=== PATIENT | male | born 1980 | race Two or more races ===

== ENCOUNTER → 2024-06-05 | Outpatient (CLI) | payer MEDICAID, SELFPAY ==
--- NOTE | 2024-06-05 13:10 | XR_ITS ---
Strength in Examination: CTA abdomen, with intravenous contrast. CTA pelvis, with intravenous contrast. 2-D sagittal and coronal reconstructions. 3-D reconstructions. Date and time of exam: June 05, 2024 1409 hours INDICATIONS: Abdominal pain severe 7 months, clinical diagnosis mesenteric ischemia CTDI vol (mgy) 15.9 DLP (MGycm) 500 Technique: Multiple CTA images, 2.0 mm slice thickness, obtained abdomen, pelvis, with the high-resolution 64 slice scanner. 100 cc Isovue-370 is administered intravenously. Sagittal and coronal 2-D reconstructions are obtained. 3-D reconstructions, angiographic images are obtained. 3-D postprocessing, including vascular maximum intensity projections. Low dose protocols were performed. One or more of the following dose reduction techniques were used; automated exposure control, adjustment of the mA and/or KV according to patient size, use of iterative reconstruction technique. Findings: No focal liver or splenic lesions No gallstones No pancreatic mass No renal or ureteral calculi, no hydronephrosis Aorta normal size 12 mm fat-containing umbilical hernia Normal appendix No ischemic small bowel or colon noted Urinary bladder intact No prostatomegaly L4-L5 3 mm central lumbar disc bulge L3-L4 5 mm central lumbar disc bulge IMPRESSION: No renal or ureteral calculi Normal appendix No ischemic small bowel: Noted Lumbar disc bulges as above
== END | disposition home or self-care (01) ==
LOC: CDIM 12:47
PROVIDERS: PCP Family Medicine; Referring Provider Nurse Practitioner Family; Visit Provider Nurse Practitioner Family
DX: R10.84 Generalized abdominal pain (principal); M51.369 Other intervertebral disc degeneration, lumbar region without mention of lumbar back pain or lower extremity pain
CPT/HCPCS: 74174; A4649; Q9967

== ENCOUNTER 2024-07-09 10:01 | Emergency (ER) | payer MEDICAID, SELFPAY ==
--- NOTE | 2024-07-09 10:25 | XR_ITS ---
Examination: CT brain head without contrast. 2-D sagittal coronal reconstructions Date and time of exam:July 09, 2024 1110 hours Comparison July 19, 2022 INDICATIONS: Seizure today, patient found down unconscious CTDI: vol (mGy):51.7 DLP: (mGycm):947 Technique: Multiple CT axial sections of the brain have been obtained, 5 mm slice thickness. Contrast has not been administered. 2-D sagittal, coronal reconstructions have been obtained Low dose protocols were performed. One or more of the following dose reduction techniques were used; automated exposure control, adjustment of the mA and/or KV according to patient size, use of iterative reconstruction technique. Findings: No significant ventricular enlargement. Stable 7 mm left temporal lobe calcification Intra-axial or extra-axial hemorrhage density is not seen. No mass effect or midline shift Basal cisterns are not remarkable. Fourth ventricle is midline. Cranial vault intact. Impression: Negative for acute hemorrhage, mass effect or midline shift Consider repeat elective brain MRI follow-up, pre and postcontrast, seizure protocol
--- NOTE | 2024-07-09 10:26 | PD.EDADULT ---
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 He was altered at time very therefore EMS was requested and transported to the emergency department without event. He remains slightly postictal with complaints of dizziness and nausea. He recalls taking his Keppra last night, however does not remember if he took it this morning. He does not recall if he took any alcohol recently. Related Data Home Medications ?Medication ?Instructions ?Recorded ?Confirmed levetiracetam 500 mg tablet 500 mg PO BID 10/16/21 04/08/22 hydrocodone 10 mg-acetaminophen 1 tab PO Q6H PRN Pain 04/08/22 04/08/22 325 mg tablet Previous Rx's ?Medication ?Instructions ?Recorded hydrocodone 5 mg-acetaminophen 325 1 tab PO Q8H PRN pain #6 tabs 04/14/22 mg tablet pantoprazole 40 mg tablet,delayed 40 mg PO BID #60 tabs 04/14/22 release famotidine 40 mg tablet 40 mg PO QDAY #30 tabs 10/08/22 ondansetron 4 mg disintegrating 4 mg PO Q8H PRN nausea and 05/27/23 tablet vomiting #10 tabs dicyclomine 20 mg tablet 20 mg PO QID PRN abdominal pain 06/11/23 #30 tabs pantoprazole 40 mg tablet,delayed 40 mg PO QDAY #14 tabs 06/11/23 release (Protonix) amoxicillin 875 mg tablet 875 mg PO BID #28 tabs 11/13/23 clarithromycin 500 mg tablet 500 mg PO BID #28 tabs 11/13/23 famotidine 40 mg tablet (Pepcid) 40 mg PO QDAY #30 tabs 04/18/24 Allergies Allergy/AdvReac Type Severity Reaction Status Date / Time No Known Allergies Allergy Verified 06/11/23 14:48 ED Exam Narrative Physical exam: GENERAL APPEARANCE: AxOx4, generally well-appearing, no acute distress. HEENT: NC, AT. MMM. EOMI, clear conjunctiva, oropharynx clear. NECK: Supple without lymphadenopathy. No stiffness or restricted ROM. HEART: Normal rate and regular rhythm, normal S1/S1, no m/r/g LUNGS: CTAB, moving air well. No crackles or wheezes are heard. ABDOMEN: Soft, nontender, nondistended with good bowel sounds heard. BACK: No midline C/T/L spine pain or deformity, No CVAT, no obvious deformity. EXTREMITIES: Without cyanosis, clubbing or edema. MUSCULOSKELETAL: FROM of all major joints, no chest tenderness NEUROLOGICAL: Grossly nonfocal. Alert and oriented, moving all 4 extremities. CN not formally tested but appear grossly intact. Observed to ambulate with normal gait. Skin: Warm and dry without any rash. Course Quality Measures none Orders Category Date Time Status CT head/brain wo con Stat Exams 07/09/24 10:25 Completed Alcohol, Blood Medical Stat Lab 07/09/24 10:35 Completed CBC Stat Lab 07/09/24 10:35 Completed CMP [Comprehensive Metabolic Panel] Stat Lab 07/09/24 10:35 Completed Ondansetron Inj [Zofran Inj] Med 07/09/24 10:25 Discontinued 4 mg IV X1 ONE Sodium Chloride 0.9% 1000 ml [Ns] 1,000 ml Med 07/09/24 10:25 Discontinued IV 999 mls/hr levETIRAcetam INJ [Keppra Inj] Med 07/09/24 10:26 Discontinued 1,000 mg IVP X1 ONE Vital Signs Vital signs: Vital Signs Temperature 98.2 F 07/09/24 10:53 Pulse Rate 103 H 07/09/24 10:53 Respiratory Rate 18 07/09/24 10:53 Blood Pressure 130/90 H 07/09/24 10:53 Pulse Oximetry (%) 93 L 07/09/24 10:53 Oxygen Delivery Method Room Air 07/09/24 10:53 SpO2 93% on room air, patient is not MDM Patient data External records reviewed:: [facility] previous records Clinical information provided by:: patient Social determinants that could affect healthcare access:: none Patient has the following chronic illnesses:: Epilepsy How is presenting disease/condition affected by chronic disease/condition?: caused by Evaluation data The following diagnostics were reviewed and interpreted by me:: lab results and radiology exam(s) Lab and/or radiology exams considered but not ordered:: None Interpretation Summary: As per narrative Medications Medications considered but not ordered:: None Medication administrations:: Medication Administration History Discontinued Medications Sodium Chloride (Ns) 1,000 mls @ 999 mls/hr IV .Q1H1M ONE Stop: 07/09/24 11:25 Last Admin: 07/09/24 10:54 Dose: 999 mls/hr Documented By: TM Levetiracetam (Levetiracetam Inj 100 Mg/Ml Vial 5ml) 1,000 mg IVP X1 ONE Stop: 07/09/24 10:27 Last Admin: 07/09/24 10:53 Dose: 1,000 mg Documented By: TM Ondansetron HCl (Ondansetron Inj 2 Mg/Ml Inj 2 Ml) 4 mg IV X1 ONE; Protocol Stop: 07/09/24 10:26 Last Admin: 07/09/24 10:53 Dose: 4 mg Documented By: TM Above Consultations Consultation(s) initiated? (list below): No Diagnosis Differential Diagnosis ED Complaint MDM: Breakthrough seizure, closed head injury, intracerebral hemorrhage Most likely diagnosis given after review of the tests above:: See below Admission Indicated Admission indicated?: not indicated Explain why admission is indicated or not indicated:: As per narrative Admission Request Was there a request for admission?: No Disposition Plan Disposition Plan: Discharge Discharge Attestation Discharge Attestation: The patient and all family members were given an opportunity to ask questions and understood the discharge instructions. Discharge instructions specifically effects, indications for sooner follow up or return to the emergency department, and the expected course of current diagnosis. Patient condition: Stable Medical Decision Making MDM Narrative MDM Narrative: Mr. Win presents emergency department with breakthrough seizure in the setting of possibly missing his dose of Keppra this morning. He is on the tail end of his postictal phase return to baseline. He remained neurologically intact throughout his emergency department stay. Events were unclear and he was found down in the [place] (workplace) therefore CT of the head was done which shows no acute intracerebral findings. Laboratory testing was significant for a normal sodium. As seizures is a chronic issue with the patient, he has no signs of prolonged postictal or status epilepticus, is neurologically intact, he is appropriate for outpatient follow-up Differential Diagnosis Differential Diagnosis: Breakthrough seizure, closed head injury, intracerebral hemorrhage Lab Data 07/09/24 10:35 07/09/24 10:35 Labs: Lab Results 07/09/24 Range/Units 10:35 WBC 6.6 (3.8-10.6) Thou/mm3 RBC 4.76 (4.50-5.90) Miln/mm3 Hgb 12.6 L (13.5-16.0) g/dL Hct 38.1 L (41.0-53.0) % MCV 80 (80-100) fL MCH 26.5 (25.0-35.0) pg MCHC 33.1 (31.0-37.0) g/dl RDW Std Deviation 38.4 (35.1-43.9) fL Plt Count 228 (140-440) Thou/mm3 Neut % (Auto) 59 (37-80) % Lymph % (Auto) 28 (10-50) % [place] % (Auto) 9 (0-12) % Eos % (Auto) 3 (0-10) % Baso % (Auto) 0 (0-2.5) % Neut # (Auto) 3.9 (1.8-7.7) Thou/mm3 Lymph # (Auto) 1.8 (1.0-4.8) Thou/mm3 [place] # (Auto) 0.6 (0.0-0.8) Thou/mm3 Eos # (Auto) 0.2 (0.0-0.5) Thou/mm3 Baso # (Auto) 0.0 (0.0-0.2) Thou/mm3 Immature Gran # (Auto) 0.02 H (0.00-0.00) Thou/mm3 Absolute Nucleated RBC 0.00 (0.00-0.00) Thou/mm3 Immature Gran % 0 (0-0) % Nucleated RBC % 0 (0) /100 WBC Sodium 137 (136-145) mMol/L Potassium 3.9 (3.4-5.1) mMol/L Chloride 100 (98-107) mMol/L Carbon Dioxide 27.5 (20.0-31.0) mMol/L Anion Gap 10 (7-16) BUN 17 (9-23) mg/dL Creatinine 1.3 (0.6-1.3) mg/dL Estim Creat Clear Calc 65.2 (>60) mL/min eGFR > 60 (60 - ) See Note BUN/Creatinine Ratio 13 (12-20) Ratio Glucose 99 (74-106) mg/dL Calculated Osmolality 275 (275-295) Calcium 9.8 (8.3-10.6) mg/dL Corrected Calcium 9.8 (8.5-10.1) mg/dL Total Bilirubin 1.4 H (0.3-1.2) mg/dL AST 20 (0-34) U/L ALT 17 (10-49) U/L Alkaline Phosphatase 82 (46-116) U/L Total Protein 7.6 (5.7-8.2) gm/dL Albumin 5.2 H (3.5-5.0) gm/dL Globulin 2.4 (2.3-3.5) gm/dL Albumin/Globulin Ratio 2.2 (1.2-2.2) Ethyl Alcohol < 10.0 (0-10.0) mg/dL Discharge Plan Plan Patient Disposition: HOME (Self Care) Prescriptions/Referrals Prescriptions/Med Rec: No Action levetiracetam 500 mg tablet 500 mg PO BID Patient Comments: take 1 tablet by mouth three times a day famotidine 40 mg tablet 40 mg PO QDAY Qty: 30 0RF dicyclomine 20 mg tablet 20 mg PO QID PRN (Reason: abdominal pain) Qty: 30 0RF pantoprazole [Protonix] 40 mg tablet,delayed release (DR/EC) 40 mg PO QDAY Qty: 14 0RF famotidine [Pepcid] 40 mg tablet 40 mg PO QDAY Qty: 30 0RF hydrocodone-acetaminophen 10-325 mg Tablet 1 tab PO Q6H PRN (Reason: Pain) pantoprazole 40 mg Tablet,Delayed Release (Dr/Ec) 40 mg PO BID Qty: 60 0RF hydrocodone-acetaminophen 5-325 mg tablet 1 tab PO Q8H MDD 3 tabs PRN (Reason: pain) Qty: 6 0RF ondansetron 4 mg tablet,disintegrating 4 mg PO Q8H PRN (Reason: nausea and vomiting) Qty: 10 0RF clarithromycin 500 mg tablet 500 mg PO BID Qty: 28 0RF amoxicillin 875 mg tablet 875 mg PO BID Qty: 28 0RF Referrals: [facility] [Primary Care Provider] - In 1 week Problem List Clinical Impression: Epileptic seizure Patient/Caregiver Discharge Instructions Education Materials: ED Seizure, Recurrent (Adult) Additional Instructions: Puede continuar tomando nanda medicamentos anticonvulsivos habituales (Keppra) josseline el aliyah del d?a. Tambi?n le muller dado Keppra en el servicio de urgencias. Realice un seguimiento con billings m?dico de atenci?n primaria seg?n sea necesario. Puede regresar al servicio de urgencias antes si los s?ntomas empeoran o si nota alg?n problema nuevo y preocupante. Print Language: Palestinian Stand Alone Forms: [facility]e Award Info., Patient Portal Info Letter
[2024-07-09 10:36] VITALS: PULSE 125; RESP 18; O2SAT 99; BMI 28.7
--- NOTE | 2024-07-09 10:48 | PC.NURSE ---
PT ARRIVES VIA EMS FROM WORK. WAS FOUND DOWN BY CO-WORKERS. ACCORDING TO EMS [employer]WORKERS CALLED WHO REPORTS HE HAS A HX OF EPILEPSY THAT HE IS MED COMPLIANT WITH HIS KEPPRA FOR. WHEN PT ARRIVED TO ED, PT WAS STICKING HIS FINGERS DOWN HIS THROAT MAKING HIMSELF VOMIT. SEIZURE PRECAUTIONS APPLIED, PT CONNECTED TO TELE, ST ON TELE, BP ELEVATED, DENIES ANY PAIN AT THIS TIME, JUST DIZZINESS. CALL AGUILAR IN REACH.
[2024-07-09 10:50] LABS: Basophils % (Auto) 0 % (0-2.5); Eosinophils # (Auto) 0.2 Thou/mm3 (0.0-0.5); Eosinophils % (Auto) 3 % (0-10); Hematocrit 38.1 % (41.0-53.0); Hemoglobin 12.6 g/dL (13.5-16.0); Immature Granulocytes % (Auto) 0 % (0-0); Immature Granulocytes Auto 0.02 Thou/mm3 (0.00-0.00); Lymphocytes # (Auto) 1.8 Thou/mm3 (1.0-4.8); Lymphocytes % (Auto) 28 % (10-50); Mean Corpuscular HGB Conc 33.1 g/dl (31.0-37.0); Mean Corpuscular Hemoglobin 26.5 pg (25.0-35.0); Mean Corpuscular Volume 80 fL (80-100); Monocytes # (Auto) 0.6 Thou/mm3 (0.0-0.8); Monocytes % (Auto) 9 % (0-12); Neutrophils # (Auto) 3.9 Thou/mm3 (1.8-7.7); Neutrophils % (Auto) 59 % (37-80); Nucleated Red Blood Cell % 0 /100 WBC (0); Platelet Count 228 Thou/mm3 (140-440); RDW Standard Deviation 38.4 fL (35.1-43.9); Red Blood Count 4.76 Miln/mm3 (4.50-5.90); White Blood Count 6.6 Thou/mm3 (3.8-10.6)
[2024-07-09 10:53] VITALS: BP 130/90; PULSE 103; RESP 18; TEMP 36.8; O2SAT 93
[2024-07-09] MEDS: ONDANSETRON INJ 2 MG/ML INJ 2 ML 4 MG IV (10:53)
[2024-07-09] MEDS: levETIRAcetam INJ 100 MG/ML VIAL 5ML 1000 MG IVP (10:53)
[2024-07-09] MEDS: SODIUM CHLORIDE 0.9% 1000 ML 1,000 ML 999 ML IV (10:54)
[2024-07-09 11:06] LABS: Alanine Aminotransferase 17 U/L (10-49); Albumin, Serum 5.2 gm/dL (3.5-5.0); Albumin/Globulin Ratio 2.2 (1.2-2.2); Alcohol, Blood Medical < 10.0 mg/dL (0-10.0); Alkaline Phosphatase 82 U/L (46-116); Anion Gap 10 (7-16); Aspartate Amino Transferase 20 U/L (0-34); BUN/Creatinine Ratio 13 Ratio (12-20); Bilirubin,Total 1.4 mg/dL (0.3-1.2); Blood Urea Nitrogen 17 mg/dL (9-23); Calcium 9.8 mg/dL (8.3-10.6); Calcium (Corrected) 9.8 mg/dL (8.5-10.1); Carbon Dioxide 27.5 mMol/L (20.0-31.0); Chloride 100 mMol/L (98-107); Creatinine (Component) 1.3 mg/dL (0.6-1.3); Estimated Creatinine Clearance 65.2 mL/min (>60); Globulin 2.4 gm/dL (2.3-3.5); Glucose 99 mg/dL (74-106); Osmolality,Calculated 275 (275-295); Potassium 3.9 mMol/L (3.4-5.1); Sodium 137 mMol/L (136-145); Total Protein 7.6 gm/dL (5.7-8.2); eGFR > 60 See Note
[2024-07-09 12:41] VITALS: BP 120/78; PULSE 86; RESP 18; O2SAT 96
== END 2024-07-09 12:44 | disposition home or self-care (01) ==
PROVIDERS: Emergency Provider Emergency Medicine; PCP Physician Assistant
DX: G40.909 Epilepsy, unspecified, not intractable, without status epilepticus (principal)
CPT/HCPCS: 36415; 70450; 80053; 80307; 80320; 85025; 96361; 96374; 96375; 99284; J1953; J2405; J7030; G0480

== ENCOUNTER 2024-07-24 16:53 | Emergency (ER) | payer MEDICAID, SELFPAY ==
[2024-07-24 16:54] VITALS: BMI 29.2
[2024-07-24 17:26] VITALS: BP 110/72; PULSE 95; RESP 15; TEMP 36.8; O2SAT 98
--- NOTE | 2024-07-24 17:30 | XR_ITS ---
Examination: CT abdomen and pelvis without contrast. Coronal 3-D reconstructions. Sagittal 2-D reconstructions. Date and time of exam:July 24, 2024 1803 hours Comparison June 05, 2024 INDICATIONS: Abdominal pain epigastric pain nausea vomiting diarrhea beginning 2 days ago CTDI: vol (mGy): 6.43 DLP: (mGycm): 374 Technique: Axial images of the abdomen have been obtained, 3 mm slice thickness Intravenous contrast material has not been administered. Low dose protocols were performed. One or more of the following dose reduction techniques were used; automated exposure control, adjustment of the mA and/or KV according to patient size, use of iterative reconstruction technique. Findings: Small pericardial effusion, 7 mm axial image 38 No focal liver or splenic lesions Contracted gallbladder No pancreatic or adrenal mass No renal or ureteral calculi, no hydronephrosis Aorta normal size 17 mm fat-containing umbilical hernia Normal appendix No bowel obstruction No diverticulitis Normal prostate Contracted urinary bladder The osseous structures are intact IMPRESSION: Negative for pancreatitis No renal or ureteral calculi, no hydronephrosis Normal appendix No bowel obstruction diverticulitis or free air Consider post fasting gallbladder sonography follow-up
--- NOTE | 2024-07-24 17:30 | PD.EDRME ---
Rapid Medical Screening Exam RME Arrival date/time: 07/24/24 16:53 44-year-old male presents to the emergency department complains of generalized abdominal pain Chief Complaint: Abdominal Pain Time Seen by Provider: 07/24/24 16:58 Vital signs: Vital Signs Temperature 98.3 F 07/24/24 17:26 Pulse Rate 95 07/24/24 17:26 Respiratory Rate 15 07/24/24 17:26 Blood Pressure 110/72 07/24/24 17:26 Pulse Oximetry (%) 98 07/24/24 17:26 Oxygen Delivery Method Room Air 07/24/24 17:26
[2024-07-24] MEDS: FAMOTIDINE 20 MG TABLET PO (17:46)
[2024-07-24] MEDS: LIDOCAINE VISCOUS 2% 15 ML UDC PO (17:47)
[2024-07-24] MEDS: MG HYD/AL HYD/SIME (Maalox Reg) SUSP 30 ML UDC PO (17:47)
[2024-07-24 18:17] LABS: Basophils % (Auto) 0 % (0-2.5); Eosinophils # (Auto) 0.1 Thou/mm3 (0.0-0.5); Eosinophils % (Auto) 1 % (0-10); Hemoglobin 13.3 g/dL (13.5-16.0); Immature Granulocytes % (Auto) 0 % (0-0); Immature Granulocytes Auto 0.01 Thou/mm3 (0.00-0.00); Lymphocytes # (Auto) 1.5 Thou/mm3 (1.0-4.8); Lymphocytes % (Auto) 21 % (10-50); Mean Corpuscular HGB Conc 34.1 g/dl (31.0-37.0); Mean Corpuscular Hemoglobin 26.2 pg (25.0-35.0); Mean Corpuscular Volume 77 fL (80-100); Monocytes # (Auto) 0.6 Thou/mm3 (0.0-0.8); Monocytes % (Auto) 9 % (0-12); Neutrophils # (Auto) 4.7 Thou/mm3 (1.8-7.7); Neutrophils % (Auto) 69 % (37-80); Nucleated Red Blood Cell % 0 /100 WBC (0); Platelet Count 304 Thou/mm3 (140-440); RDW Standard Deviation 35.9 fL (35.1-43.9); Red Blood Count 5.07 Miln/mm3 (4.50-5.90); White Blood Count 6.9 Thou/mm3 (3.8-10.6)
[2024-07-24 18:38] LABS: Alanine Aminotransferase 13 U/L (10-49); Albumin, Serum 5.1 gm/dL (3.5-5.0); Alkaline Phosphatase 79 U/L (46-116); Anion Gap 9 (7-16); Aspartate Amino Transferase 15 U/L (0-34); BUN/Creatinine Ratio 13 Ratio (12-20); Bilirubin,Total 0.9 mg/dL (0.3-1.2); Blood Urea Nitrogen 16 mg/dL (9-23); Calcium 9.9 mg/dL (8.3-10.6); Calcium (Corrected) 9.9 mg/dL (8.5-10.1); Carbon Dioxide 26.3 mMol/L (20.0-31.0); Chloride 103 mMol/L (98-107); Creatinine (Component) 1.2 mg/dL (0.6-1.3); Estimated Creatinine Clearance 68.7 mL/min (>60); Globulin 2.5 gm/dL (2.3-3.5); Glucose 108 mg/dL (74-106); Lipase 63 U/L (12-53); Osmolality,Calculated 277 (275-295); Sodium 138 mMol/L (136-145); Total Protein 7.6 gm/dL (5.7-8.2); eGFR > 60 See Note
[2024-07-24 19:07] LABS: Collection Type, Urine Clean Catch; Squamous Epithelial Cell,Urine 0 /hpf (0-5)
[2024-07-24 19:16] LABS: Bacteria,Urine Rare; Bilirubin,Urine Negative (Negative); Blood,Urine Trace (Negative); Clarity,Urine Clear (Clear/Hazy); Color,Urine Yellow (Lt Yel-Yel); Culture Indicated,Urine Not Indicated; Glucose, Urine Negative (Negative); Ketones,Urine 2+ (Negative); Leukocyte Esterase,Urine Positive (Negative); Nitrite,Urine Negative (Negative); PH,Urine 6.5 (5.0-7.0); Protein,Urine 2+ (Neg - Trace); RBC,Urine 3 /hpf (0-3); Specific Gravity,Urine 1.044 (1.001-1.035); WBC,Urine 4 /hpf (0-5)
[2024-07-24 19:35] LABS: Amphetamine/Methamp Scrn,U Negative (Negative); Barbiturate Screen,Urine Negative (Negative); Benzodiazepines Screen,Urine Negative (Negative); Benzoylecgonine Screen, Ur Negative (Negative); Fentanyl Screen,Urine Negative (Negative); Opiate Screen,Urine Negative (Negative); THC Screen,Urine Negative (Negative)
[2024-07-24 19:54] VITALS: BP 102/75; PULSE 86; RESP 16; TEMP 36.8; O2SAT 100
[2024-07-25 00:14] VITALS: BP 125/70; PULSE 74; RESP 18; TEMP 36.7; O2SAT 99
--- NOTE | 2024-07-25 00:22 | EDNOTE_ITS ---
ED Abdominal Pain RME/HPI General Chief Complaint: Abdominal Pain Stated complaint: ABD. PAIN AND DIARRHEA X2 DAYS Time seen by provider: 07/24/24 16:58 Arrival date/time: 07/24/24 16:53 Limitations: no limitations RME / HPI RME / HPI narrative: 07/24/24 16:53 44-year-old male presents to the emergency department complains of generalized abdominal pain --- Dr[facility] Main ED Evaluation: 44yo male with pmhx GERD presents to the ED for a chief complaint of epigastric pain x 2 days. Related Data Home Medications ?Medication ?Instructions ?Recorded ?Confirmed levetiracetam 500 mg tablet 500 mg PO BID 10/16/21 04/08/22 hydrocodone 10 mg-acetaminophen 1 tab PO Q6H PRN Pain 04/08/22 04/08/22 325 mg tablet Previous Rx's ?Medication ?Instructions ?Recorded hydrocodone 5 mg-acetaminophen 325 1 tab PO Q8H PRN pain #6 tabs 04/14/22 mg tablet pantoprazole 40 mg tablet,delayed 40 mg PO BID #60 tabs 04/14/22 release famotidine 40 mg tablet 40 mg PO QDAY #30 tabs 10/08/22 ondansetron 4 mg disintegrating 4 mg PO Q8H PRN nausea and 05/27/23 tablet vomiting #10 tabs dicyclomine 20 mg tablet 20 mg PO QID PRN abdominal pain 06/11/23 #30 tabs pantoprazole 40 mg tablet,delayed 40 mg PO QDAY #14 tabs 06/11/23 release (Protonix) amoxicillin 875 mg tablet 875 mg PO BID #28 tabs 11/13/23 clarithromycin 500 mg tablet 500 mg PO BID #28 tabs 11/13/23 famotidine 40 mg tablet (Pepcid) 40 mg PO QDAY #30 tabs 04/18/24 ondansetron 4 mg disintegrating 4 mg PO Q8H PRN nausea and 07/25/24 tablet vomiting #14 tabs Allergies Allergy/AdvReac Type Severity Reaction Status Date / Time No Known Allergies Allergy Verified 07/24/24 16:57 Review of Systems Review of Systems Systems Reviewed: All systems reviewed, normal except as documented Past Medical History Past Medical History NEUROLOGIC: Positive Neurological Disorders and Seizures; Negative Cerebrovascular Accident, Transient Ischemic Attacks (TIA), Dementia, Alzheimer's Disease, Brain Tumor, Meningitis, Epilepsy, Multiple Sclerosis, Cerebral Palsy, Amyotrophic Lateral Sclerosis (ALS/Aracelis Gehrig's), Guillain-[place] Syndrome, Spina Bifida, Paralysis, Peripheral Neuropathy, South's Palsy, Subdural Hematoma, Migraine, Head Trauma, Spinal Cord Injury or Traumatic Brain Injury CARDIAC: Negative Cardiac Disorders, Myocardial Infarction, Cardiac Arrhythmia, Atrial Fibrillation, Angina, Heart Murmur, Coronary Artery Disease, Atherosclerotic Heart Disease, Peripheral Vascular Disease, Hypercholesterolemia, Aneurysm, Congestive Heart Failure, Congenital Heart Disease, Valvular Heart Disease, Rheumatic Fever, Cardiomyopathy, Edema, Pericarditis, Cellulitis, Deep Vein Thrombosis, Hypertension, Hypotension or Varicose Veins RESPIRATORY: Negative Chronic Obstructive Pulmonary Disease (COPD), Asthma, Bronchitis, Emphysema, Pneumonia, Pulmonary Fibrosis, Cystic Fibrosis, Tuberculosis, Pulmonary Embolism, Pulmonary Edema or Sleep Apnea GASTROINTESTINAL: Positive Gastrointestinal Disorders, Pancreatitis, Gastroesophageal Reflux Disease and Obesity; Negative Hepatitis, Cirrhosis, Celiac Disease, Gall Bladder Disease, Gastrointestinal Bleed, Esophageal Varices, Kaba's Esophagus, Colitis, Ulcerative Colitis, Diverticulitis, Diverticulosis, Ulcer, Colorectal Cancer, Irritable Bowel, Crohn's Disease, Obstructive Bowel, Hiatal Hernia or Hemorrhoids GENITOURINARY: Negative Genitourinary Disorders, Renal Disease, Kidney Stones, Polycystic Kidney Disease, Neurogenic Bladder, Inguinal Hernia, Dialysis, Prostate Cancer or Benign Prostatic Hyperplasia REPRODUCTIVE: Negative Breast Cancer, Genital Herpes, Gonorrhea, Syphilis or Testicular Cancer MUSCULOSKELETAL: Positive Musculoskeletal Disorders and Arthritis; Negative Muscular Dystrophy, Myasthenia Gravis, Marfan's Syndrome, Bone Cancer, Rheumatoid Arthritis, Osteoporosis, Degenerative Disk Disease, Gout, Scoliosis, Carpal Tunnel Syndrome, Fibromyalgia, Fractures, Degenerative Joint Disease, Ost eomyelitis or Poliovirus ENT: Negative Cataracts, Glaucoma, Blind, Retinal Detachment, Macular Degeneration, Ear Infection, Deafness, Head Trauma or Eye Prosthesis ENDOCRINE: Negative Endocrine Disorders, Diabetes Mellitus Type 1, Diabetes Mellitus Type 2, Hypoglycemia, [place]'s Syndrome, [place]'s Disease, Hyperthyroidism, Hypothyroidism, Parathyroid Disease, Pituitary Disease, Systemic Lupus Erythematosus, Syndrome of Inappropriate Antidiuretic Hormone (SIADH), Adrenal Disease or Graves' Disease HEMATOLOGIC: Negative Blood Disorders, Anemia, Leukemia, Hemophilia, Thalassemia, Sickle Cell Disease or Clotting Problems PSYCHO/SOCIAL: Positive Anxiety; Negative Psychiatric Problems, Schizophrenia, Recreational Drug Use, Bipolar Disorder, Depression, Behavior Problems, Self-Mutilation, Attention Deficit Disorder, Attention Deficit Hyperactivity Disorder, Depression, Post Traumatic Stress Disorder or Eating Disorder OTHER HISTORY: Positive Blood Transfusions; Negative Hospitalization, Autoimmune Disease, Down Syndrome, Autism, Developmental Delay, Shingles, Falls, Blood Transfusion Reaction, Anesthesia Reactions, Organ Transplant, Chemotherapy, Radiation Therapy, Hyperbaric Therapy, MRSA, VRSA, Vancomycin-Resistant Enterococci, Human Immunodeficiency Virus (HIV), Chicken Pox, Measles, Mumps, Rubella (Lao Measles), Pertussis, Clostridium Difficile, Cancer, Breast Cancer, Cervical Cancer, Colorectal Cancer, Lung Cancer, Ovarian Cancer, Prostate Cancer or Testicular Cancer Family History FAMILY HISTORY: Positive Family Surgery; Negative Family Psychiatric Problems, Family Respiratory Disorders, Family Cardiac Disorders, Family Gastrointestinal Problems, Family Cancer or Family Anesthesia Reaction Surgical History SURGICAL: Positive Joint Replacement and Arthroscopy; Negative Cardiac Surgery, Open Heart Surgery, Coronary Artery Bypass Graft, Valve Replacement, Vascular Surgery, Coronary Stent, Cardiac Catheterization, Pacemaker, Angiogram, Auto Implanted Cardiovert Defib, Carotid Endarterectomy, Endocrine Surgery, Thyroidectomy, Ear Surgery, Tympanostomy Tube, Eye Surgery, Nose Surgery, Oral Surgery, Tonsillectomy, Adenoidectomy, Cochlear Implant, Corneal Transplant, Throat Surgery, Abdominal Surgery, Tracheostomy, Gastric Bypass Surgery, Gastrostomy, Bowel Surgery, Nephrectomy, Transurethral Resec tion, Amputation, Open Reduction Internal Fixation, Neurologic Surgery, Brain Shunt, Vasectomy or Organ Transplant Social History SMOKING STATUS: Never smoker SECOND HAND EXPOSURE: No SUBSTANCE USE: does not use OCCUPATION: Unemployed for past 2 years ED Exam General Limitations: Present no limitations General appearance: Present alert and other (looks uncomfortable) Head Head exam: Present atraumatic Eye Eye exam: Present normal appearance and EOMI; Absent scleral icterus ENT ENT exam: Present normal exam, normal oropharynx and mucous membranes moist Neck Neck exam: Present normal inspection, full ROM and trachea midline Chest Chest inspection: Present normal inspection and symmetric chest wall rise Respiratory Respiratory exam: Present normal lung sounds bilaterally; Absent respiratory distress, wheezes or accessory muscle use Cardiovascular Cardiovascular exam: Present regular rate, normal rhythm and normal heart sounds Abdominal Exam Abdominal exam: Present soft, guarding and normal bowel sounds; Absent distention or rebound Abdominal tenderness: Present epigastrium Extremities Exam Extremities exam: Present normal inspection and full ROM Back Exam Back exam: Present normal inspection and full ROM Neurological Exam Neurological exam: Present alert, oriented X3 and CN II-XII intact Psychiatric Psychiatric exam: Present normal affect and normal mood Skin Skin exam: Present warm, dry, intact and normal color Course Quality Measures none Orders Category Date Time Status CT abdomen pelvis wo con Stat Exams 07/24/24 17:30 Completed CBC Stat Lab 07/24/24 17:51 Completed Comprehensive Metabolic Panel Stat Lab 07/24/24 17:51 Completed Drug Screen,Urine Stat Lab 07/24/24 18:34 Completed Lipase Stat Lab 07/24/24 17:51 Completed UA, C/S IF [Urinalysis, C/S if Indicated] Stat Lab 07/24/24 18:34 Completed Famotidine Inj [Pepcid Inj] Med 07/25/24 03:14 Discontinued 20 mg IVP X1 ONE Famotidine [Pepcid] Med 07/24/24 17:30 Discontinued 20 mg PO X1 ONE Ketorolac Inj [Toradol Inj] Med 07/25/24 00:24 Discontinued 15 mg IVP X1 ONE Lidocaine 2% Viscous [Xylocaine 2% Viscous] Med 07/24/24 17:30 Discontinued 15 ml PO X1 ONE Morphine Inj Med 07/25/24 00:24 Discontinued 4 mg IVP X1 ONE Morphine Inj Med 07/25/24 03:12 Discontinued 4 mg IVP X1 ONE Ondansetron Inj [Zofran Inj] Med 07/25/24 00:24 Discontinued 4 mg IV X1 ONE Sodium Chloride 0.9% 1000 ml [Ns] 1,000 ml Med 07/25/24 00:24 Discontinued IV 999 mls/hr mg Hyd/Al Hyd/Kaela Susp [Maalox Susp] Med 07/24/24 17:30 Discontinued 30 ml PO X1 ONE Vital Signs Vital signs: Vital Signs Temperature 98.3 F 07/24/24 17:26 Pulse Rate 95 07/24/24 17:26 Respiratory Rate 15 07/24/24 17:26 Blood Pressure 110/72 07/24/24 17:26 Pulse Oximetry (%) 98 07/24/24 17:26 Oxygen Delivery Method Room Air 07/24/24 17:26 Abdominal Pain MDM Patient data External records reviewed:: [facility] previous records (Per chart review, patient was seen here on 04/18/24 for abdominal pain.) Clinical information provided by:: patient Social determinants that could affect healthcare access:: none Patient has the following chronic illnesses:: GERD, seizures How is presenting disease/condition affected by chronic disease/condition?: uneffected by Evaluation data The following diagnostics were reviewed and interpreted by me:: lab results and radiology exam(s) Lab and/or radiology exams considered but not ordered:: none Interpretation Summary: CBC is normal, CMP is normal, Lipase is slightly elevated, UDS is negative, according to my interpretation. ------ [facility] Report Signed Patient: MONA ARAGON Record#: [id number] Birthdate: 1980 Age/Sex: 44 / M Location: [facility] Attending Dr: Ordering Physician: Carline KNOWLES)Yoni NP Date of Service: 07/24/24 Procedure(s): CT abdomen pelvis wo con Accession Number(s): [id number] cc: Taqueria Stanton; Carline KNOWLES),Yoni LÓPEZ; Justin Costa MD~ Examination: CT abdomen and pelvis without contrast. Coronal 3-D reconstructions. Sagittal 2-D reconstructions. Date and time of exam:July 24, 2024 1803 hours Comparison June 05, 2024 INDICATIONS: Abdominal pain epigastric pain nausea vomiting diarrhea beginning 2 days ago CTDI: vol (mGy): 6.43 DLP: (mGycm): 374 Technique: Axial images of the abdomen have been obtained, 3 mm slice thickness Intravenous contrast material has not been administered. Low dose protocols were performed. One or more of the following dose reduction techniques were used; automated exposure control, adjustment of the mA and/or KV according to patient size, use of iterative reconstruction technique. Findings: Small pericardial effusion, 7 mm axial image 38 No focal liver or splenic lesions Contracted gallbladder No pancreatic or adrenal mass No renal or ureteral calculi, no hydronephrosis Aorta normal size 17 mm fat-containing umbilical hernia Normal appendix No bowel obstruction No diverticulitis Normal prostate Contracted urinary bladder The osseous structures are intact IMPRESSION: Negative for pancreatitis No renal or ureteral calculi, no hydronephrosis Normal appendix No bowel obstruction diverticulitis or free air Consider post fasting gallbladder sonography follow-up Dictated By: Justin Costa MD Signed By: <Electronically signed by Justin Costa MD in OV> 07/24/24 1842 Medications / Prescriptions Medications or Prescriptions considered but not ordered:: none Medication administrations:: Medication Administration History Discontinued Medications Al Hydrox/Mg Hydrox/Simethicone (Mg Hyd/Al Hyd/Kaela (Maalox Reg) Susp 30 Ml Udc) 30 ml PO X1 ONE Stop: 07/24/24 17:31 Last Admin: 07/24/24 17:47 Dose: 30 ml Documented By: Famotidine (Famotidine 20 Mg Tablet) 20 mg PO X1 ONE Stop: 07/24/24 17:31 Last Admin: 07/24/24 17:46 Dose: 20 mg Documented By: Famotidine (Famotidine Inj 10 Mg/Ml Vial 2 Ml) 20 mg IVP X1 ONE Stop: 07/25/24 03:15 Last Admin: 07/25/24 03:24 Dose: 20 mg Documented By: KYLAH Sodium Chloride (Ns) 1,000 mls @ 999 mls/hr IV .Q1H1M ONE Stop: 07/25/24 01:24 Last Infusion: 07/25/24 01:39 Dose: Infused Documented By: Admin: 07/25/24 00:30 Dose: 999 mls/hr Documented By: BRITTANY Ketorolac Tromethamine (Ketorolac Inj 30 Mg/Ml Vial) 15 mg IVP X1 ONE Stop: 07/25/24 00:25 Last Admin: 07/25/24 00:29 Dose: 15 mg Documented By: BRITTANY Lidocaine HCl (Lidocaine Viscous 2% 15 Ml Udc) 15 ml PO X1 ONE Stop: 07/24/24 17:31 Last Admin: 07/24/24 17:47 Dose: 15 ml Documented By: Morphine Sulfate (Morphine Sulf Inj 10 Mg/Ml Vial) 4 mg IVP X1 ONE Stop: 07/25/24 00:25 Last Admin: 07/25/24 00:30 Dose: 4 mg Documented By: BRITTANY Morphine Sulfate (Morphine Sulf Inj 10 Mg/Ml Vial) 4 mg IVP X1 ONE Stop: 07/25/24 03:13 Last Admin: 07/25/24 03:24 Dose: 4 mg Documented By: KYLAH Ondansetron HCl (Ondansetron Inj 2 Mg/Ml Inj 2 Ml) 4 mg IV X1 ONE; Protocol Stop: 07/25/24 00:25 Last Admin: 07/25/24 00:37 Dose: 4 mg Documented By: CB see above Consultations Consultation(s) initiated? (list below): No Diagnosis Differential diagnosis abdominal pain: abdominal pain, acute appendicitis, calculus of kidney, constipation, diverticulitis, gastroenteritis and pancreatitis Most likely diagnosis given after review of the tests above:: Abdominal pain unclear etiology Admission Indicated Admission indicated?: not indicated Admission Request Was there a request for admission?: No Disposition Plan Disposition Plan: Discharge Discharge Attestation Discharge Attestation: The patient and all family members were given an opportunity to ask questions and understood the discharge instructions. Discharge instructions specifically effects, indications for sooner follow up or return to the emergency department, and the expected course of current diagnosis. Patient condition: Stable Discharge Plan Plan Patient Disposition: HOME (Self Care) Patient condition on transfer: Stable Prescriptions/Referrals Prescriptions/Med Rec: New ondansetron 4 mg tablet,disintegrating 4 mg PO Q8H PRN (Reason: nausea and vomiting) Qty: 14 0RF No Action levetiracetam 500 mg tablet 500 mg PO BID Patient Comments: take 1 tablet by mouth three times a day famotidine 40 mg tablet 40 mg PO QDAY Qty: 30 0RF dicyclomine 20 mg tablet 20 mg PO QID PRN (Reason: abdominal pain) Qty: 30 0RF pantoprazole [Protonix] 40 mg tablet,delayed release (DR/EC) 40 mg PO QDAY Qty: 14 0RF famotidine [Pepcid] 40 mg tablet 40 mg PO QDAY Qty: 30 0RF hydrocodone-acetaminophen 10-325 mg Tablet 1 tab PO Q6H PRN (Reason: Pain) pantoprazole 40 mg Tablet,Delayed Release (Dr/Ec) 40 mg PO BID Qty: 60 0RF hydrocodone-acetaminophen 5-325 mg tablet 1 tab PO Q8H MDD 3 tabs PRN (Reason: pain) Qty: 6 0RF ondansetron 4 mg tablet,disintegrating 4 mg PO Q8H PRN (Reason: nausea and vomiting) Qty: 10 0RF clarithromycin 500 mg tablet 500 mg PO BID Qty: 28 0RF amoxicillin 875 mg tablet 875 mg PO BID Qty: 28 0RF Referrals: Taqueria Mac [Primary Care Provider] - In 1 week Problem List Clinical Impression: Nausea and vomiting Patient/Caregiver Discharge Instructions Education Materials: ED Vomiting (Adult) Additional Instructions: Please avoid greasy and fatty foods. Continue to hydrate with Pedialyte and Gatorade. Return to emergency department for any worsening symptoms, or any other concerns. Print Language: Ukrainian Stand Alone Forms: [facility] Award Info., Patient Portal Info Letter
[2024-07-25] MEDS: KETOROLAC INJ 30 MG/ML VIAL 15 MG IVP (00:29)
[2024-07-25] MEDS: SODIUM CHLORIDE 0.9% 1000 ML 1,000 ML 999 ML IV (00:30)
[2024-07-25] MEDS: MORPHINE SULF INJ 10 MG/ML VIAL 4 MG IVP ×2 (00:30→03:24)
[2024-07-25] MEDS: ONDANSETRON INJ 2 MG/ML INJ 2 ML 4 MG IV (00:37)
[2024-07-25] MEDS: FAMOTIDINE INJ 10 MG/ML VIAL 2 ML 20 MG IVP (03:24)
[2024-07-25 04:52] VITALS: RESP 18
== END 2024-07-25 04:53 | disposition home or self-care (01) ==
PROVIDERS: Nurse Practitioner Primary Care; Emergency Provider Emergency Medicine; PCP Physician Assistant
DX: R11.2 Nausea with vomiting, unspecified (principal); K21.9 Gastro-esophageal reflux disease without esophagitis; R19.7 Diarrhea, unspecified
CPT/HCPCS: 36415; 74176; 80053; 80307; 81001; 83690; 85025; 96361; 96374; 99284; J1885; J2270; J2405; J3490; J7030; A9270

== ENCOUNTER 2024-10-16 07:20 | Day surgery (SDC) | payer MEDICAID, SELFPAY ==
[2024-10-15 13:54] VITALS: BMI 28.3
[2024-10-16] VITALS (14 sets, daily range): BP systolic 86–135; BP diastolic 73–113; PULSE 73–94; RESP 10–22; TEMP 36.2–36.4; O2SAT 97–100; BMI 28.7
[2024-10-16] MEDS: RINGERS LACTATED 500 ML 500 ML 20 ML IV (09:13)
[2024-10-16] MEDS: BENZOCAINE 20% (Hurricaine) SPRAY 1 DOSE TOP (09:20)
[2024-10-16] MEDS: fentaNYL CIT INJ 50 mCg/ML AMP 2ML (ASD USE ONLY) IV (09:28)
[2024-10-16] MEDS: DiphenhydrAMINE INJ 50 MG/ML VIAL 25 MG IV (09:31)
[2024-10-16] MEDS: MIDAZOLAM INJ 1 MG/ML VIAL 2 ML (ASD USE ONLY) 2 MG IV (09:31)
[2024-10-16] MEDS: ONDANSETRON INJ 2 MG/ML INJ 2 ML 4 MG IV (09:36)
== END 2024-10-16 10:25 | disposition home or self-care (01) ==
PROVIDERS: PCP Physician Assistant; Referring Provider Internal Medicine Gastroenterology; Visit Provider Internal Medicine Gastroenterology
PROC: 0DBE8ZX Excision of Large Intestine, Via Natural or Artificial Opening Endoscopic, Diagnostic (ICD-10-PCS; CPT 45380; principal; 2024-10-16 09:15)
PROC: (CPT 43239; 2024-10-16 09:15)
DX: K64.0 First degree hemorrhoids (principal); K31.89 Other diseases of stomach and duodenum
CPT/HCPCS: 45380; A4217; A4649; J1200; J2250; J2405; J3010; J7120; A9270

== ENCOUNTER 2025-07-04 03:54 | Emergency (ER) | payer MEDICAID, SELFPAY ==
[2025-07-04 03:55] VITALS: BP 139/86; PULSE 98; RESP 17; TEMP 36.7; O2SAT 98
--- NOTE | 2025-07-04 04:43 | EKG_ITS ---
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
--- NOTE | 2025-07-04 04:43 | PD.EDRME ---
Rapid Medical Screening Exam RME Arrival date/time: 07/04/25 03:54 43M with history of alcoholic pancreatitis, SBO, and seizures presents to ED with 1 day of N/V, dizziness, and tremors. There was some upper ab/chest pain, but that has improved. Last drink was yesterday. Patient states this feels different compared to when he had has pancreatitis and SBO. Chief Complaint: Abdominal Pain Vital signs: Vital Signs Temperature 98.1 F 07/04/25 03:55 Pulse Rate 98 07/04/25 03:55 Respiratory Rate 17 07/04/25 03:55 Blood Pressure 139/86 H 07/04/25 03:55 Pulse Oximetry (%) 98 07/04/25 03:55 Oxygen Delivery Method Room Air 07/04/25 03:55 Exam: Mild epigastric tenderness. Tremors. Anxiety. Clinical Impression: alcohol withdrawal vs drug use vs gastritis vs GERD vs SBO vs biliary disease vs pancreatitis vs dissection
--- NOTE | 2025-07-04 04:44 | XR_ITS ---
EXAMINATION: PA chest single view TECHNIQUE: Upright PA chest single view Date and time: July 04, 2025, 0443 hours, comparison November 13, 2023 INDICATION: Nausea vomiting dizziness today FINDINGS: Normal heart size Lungs are clear. The osseous structures are intact IMPRESSION: No active disease
[2025-07-04] MEDS: DIAZEPAM INJ 5 MG/ML VIAL 2 ML 10 MG IM (05:10)
[2025-07-04 05:33] LABS: Collection Type, Urine Clean Catch
[2025-07-04 05:55] LABS: Basophils # (Auto) 0.0 Thou/mm3 (0.0-0.2); Basophils % (Auto) 0 % (0-2.5); Eosinophils # (Auto) 0.0 Thou/mm3 (0.0-0.5); Eosinophils % (Auto) 0 % (0-10); Hematocrit 37.9 % (41.0-53.0); Hemoglobin 12.9 g/dL (13.5-16.0); Immature Granulocytes Auto 0.03 Thou/mm3 (0.00-0.00); Lymphocytes # (Auto) 1.4 Thou/mm3 (1.0-4.8); Lymphocytes % (Auto) 12 % (10-50); Mean Corpuscular HGB Conc 34.0 g/dl (31.0-37.0); Mean Corpuscular Hemoglobin 27.1 pg (25.0-35.0); Mean Corpuscular Volume 80 fL (80-100); Monocytes # (Auto) 1.2 Thou/mm3 (0.0-0.8); Monocytes % (Auto) 11 % (0-12); Neutrophils # (Auto) 8.4 Thou/mm3 (1.8-7.7); Neutrophils % (Auto) 76 % (37-80); Nucleated Red Blood Cell # 0.00 Thou/mm3 (0.00-0.00); Nucleated Red Blood Cell % 0 /100 WBC (0); Platelet Count 311 Thou/mm3 (140-440); RDW Standard Deviation 43.4 fL (35.1-43.9); Red Blood Count 4.76 Miln/mm3 (4.50-5.90); White Blood Count 11.1 Thou/mm3 (3.8-10.6)
[2025-07-04 06:18] LABS: Bilirubin,Urine Negative (Negative); Blood,Urine Negative (Negative); Clarity,Urine Clear (Clear/Hazy); Color,Urine Yellow (Lt Yel-Yel); Culture Indicated,Urine Not Indicated; Glucose, Urine Negative (Negative); Hyaline Casts,Urine < 1 /hpf (0-1); Ketones,Urine Negative (Negative); Leukocyte Esterase,Urine Negative (Negative); Nitrite,Urine Negative (Negative); PH,Urine 6.0 (5.0-7.0); Protein,Urine 1+ (Neg - Trace); RBC,Urine < 1 /hpf (0-3); Specific Gravity,Urine 1.029 (1.001-1.035); Squamous Epithelial Cell,Urine < 1 /hpf (0-5); Urobilinogen,Urine Negative mg/dL (0.0-1.0); WBC,Urine 2 /hpf (0-5)
[2025-07-04 06:36] LABS: Alanine Aminotransferase 19 U/L (10-49); Albumin, Serum 5.2 gm/dL (3.5-5.0); Albumin/Globulin Ratio 1.8 (1.2-2.2); Alcohol, Blood Medical < 3.0 mg/dL (0-10.0); Alkaline Phosphatase 103 U/L (46-116); Anion Gap 14 (7-16); Aspartate Amino Transferase 32 U/L (0-34); BUN/Creatinine Ratio 6 Ratio (12-20); Bilirubin,Total 1.0 mg/dL (0.3-1.2); Blood Urea Nitrogen 8 mg/dL (9-23); Calcium 9.2 mg/dL (8.3-10.6); Calcium (Corrected) 9.2 mg/dL (8.5-10.1); Carbon Dioxide 29.0 mMol/L (20.0-31.0); Chloride 99 mMol/L (98-107); Creatinine (Component) 1.3 mg/dL (0.6-1.3); Globulin 2.9 gm/dL (2.3-3.5); Glucose 125 mg/dL (74-106); Lipase 127 U/L (12-53); Magnesium 1.8 mg/dL (1.6-2.6); Osmolality,Calculated 282 (275-295); Potassium 4.1 mMol/L (3.4-5.1); Sodium 142 mMol/L (136-145); Total Protein 8.1 gm/dL (5.7-8.2); Troponin I < 0.020 ng/mL (0.0-0.045); eGFR > 60 See Note
--- NOTE | 2025-07-04 06:49 | EDNOTE_ITS ---
ED Abdominal Pain RME/HPI General Chief Complaint: Abdominal Pain Stated complaint: UPPER ABD PAIN RADIATING BACK, N/V Time seen by provider: 07/04/25 05:28 Arrival date/time: 07/04/25 03:54 Source: patient Mode of arrival: ambulatory Limitations: no limitations RME / HPI MD complaint: abdominal pain Onset (ago): hour(s) Consistency: intermittent Location: epigastric Severity: mild Severity scale (1-10): 6 Quality: aching Radiation: none Migration to: no migration Relieving factors: nothing Exacerbating factors: nothing Context: other (Has been drinking, last drink was 1 day ago.) Associated symptoms: other (Patient feels shaky.) RME / HPI narrative: 07/04/25 03:54 43M with history of alcoholic pancreatitis, SBO, and seizures presents to ED with 1 day of N/V, dizziness, and tremors. There was some upper ab/chest pain, but that has improved. Last drink was yesterday. Patient states this feels different compared to when he had has pancreatitis and SBO. Exam: Mild epigastric tenderness. Tremors. Anxiety. Impression: alcohol withdrawal vs drug use vs gastritis vs GERD vs SBO vs biliary disease vs pancreatitis vs dissection Related Data Home Medications ?Medication ?Instructions ?Recorded ?Confirmed levetiracetam 500 mg tablet 500 mg PO BID 10/16/2103/04 hydrocodone 10 mg-acetaminophen 1 tab PO Q6H PRN Pain 04/08/22 04/08/22 325 mg tablet Held on 10/16/24. Instructions: Resume on 10/17/24. quetiapine 100 mg tablet 100 mg PO QDAY PRN anxiety 0 10/16/24 10/16/24 Previous Rx's ?Medication ?Instructions ?Recorded hydrocodone 5 mg-acetaminophen 325 1 tab PO Q8H PRN pa in #6 tabs 04/14/22 mg tablet Held on 10/16/24. Instructions: Resume on 10/17/24. pantoprazole 40 mg tablet,delayed 40 mg PO BID #60 tab s 04/14/22 release famotidine 40 mg tablet 40 mg PO QDAY #30 tabs 10/08 ondansetron 4 mg disintegrating 4 mg PO Q8H PRN nausea and 05/27/23 tablet vomiting #10 tabs dicyclomine 20 mg tablet 20 mg PO QID PRN abdominal p ain 06/11/23 #30 tabs pantoprazole 40 mg tablet,delayed 40 mg PO QDAY #14 ta bs 06/11/23 release (Protonix) amoxicillin 875 mg tablet 875 mg PO BID #28 tabs 11/12 clarithromycin 500 mg tablet 500 mg PO BID #28 tabs famotidine 40 mg tablet (Pepcid) 40 mg PO QDAY #30 tab s 04/18/24 ondansetron 4 mg disintegrating 4 mg PO Q8H PRN nausea and 07/25/24 tablet vomiting #14 tabs lorazepam 0.5 mg tablet (Ativan) 0.5 mg PO TID PRN alc ohol 07/04/25 withdrawal #14 tabs Allergies Allergy/AdvReac Type Severity Reaction Status Date / Time No Known Allergies Allergy Verified 07/04/25 03:55 Review of Systems Review of Systems Systems Reviewed: All systems reviewed, normal except as documented Past Medical History Past Medical History NEUROLOGIC: Positive Neurological Disorders and Seizures; Negative Cerebrovascular Accident, Transient Ischemic Attacks (TIA), Dementia, Alzheimer's Disease, Brain Tumor, Meningitis, Epilepsy, Multiple Sclerosis, Cerebral Palsy, Amyotrophic Lateral Sclerosis (ALS/Aracelis Gehrig's), Guillain-[place] Syndrome, Spina Bifida, Paralysis, Peripheral Neuropathy, South's Palsy, Subdural Hematoma, Migraine, Head Trauma, Spinal Cord Injury or Traumatic Brain Injury CARDIAC: Negative Cardiac Disorders, Myocardial Infarction, Cardiac Arrhythmia, Atrial Fibrillation, Angina, Heart Murmur, Coronary Artery Disease, Atherosclerotic Heart Disease, Peripheral Vascular Disease, Hypercholesterolemia, Aneurysm, Congestive Heart Failure, Congenital Heart Disease, Valvular Heart Disease, Rheumatic Fever, Cardiomyopathy, Edema, Pericarditis, Cellulitis, Deep Vein Thrombosis, Hypertension, Hypotension or Maciej icose Veins RESPIRATORY: Negative Chronic Obstructive Pulmonary Disease (COPD), Asthma, Bronchitis, Emphysema, Pneumonia, Pulmonary Fibrosis, Cystic Fibrosis, Tuberculosis, Pulmonary Embolism, Pulmonary Edema or Sleep Apnea GASTROINTESTINAL: Positive Gastrointestinal Disorders, Pancreatitis, Gastroesophageal Reflux Disease and Obesity; Negative Hepatitis, Cirrhosis, Celiac Disease, Gall Bladder Disease, Gastrointestinal Bleed, Esophageal Varices, Kaba's Esophagus, Colitis, Ulcerative Colitis, Diverticulitis, Diverticulosis, Ulcer, Colorectal Cancer, Irritable Bowel, Crohn's Disease, Obstructive Bowel, Hiatal Hernia or Hemorrhoids GENITOURINARY: Negative Genitourinary Disorders, Renal Disease, Kidney Stones, Polycystic Kidney Disease, Neurogenic Bladder, Inguinal Hernia, Dialysis, Prost ate Cancer or Benign Prostatic Hyperplasia REPRODUCTIVE: Negative Breast Cancer, Genital Herpes, Gonorrhea, Syphilis or Testicular Cancer MUSCULOSKELETAL: Positive Musculoskeletal Disorders and Arthritis; Negative Muscular Dystrophy, Myasthenia Gravis, Marfan's Syndrome, Bone Cancer, Rheumatoid Arthritis, Osteoporosis, Degenerative Disk Disease, Gout, Scoliosis, Carpal Tunnel Syndrome, Fibromyalgia, Fractures, Degenerative Joint Disease, Osteomyelitis or Poliovirus ENT: Negative Cataracts, Glaucoma, Blind, Retinal Detachment, Macular Degeneration, Ear Infection, Deafness, Head Trauma or Eye Prosthesis ENDOCRINE: Negative Endocrine Disorders, Diabetes Mellitus Type 1, Diabetes Mellitus Type 2, Hypoglycemia, Sarah's Syndrome, Lawrence's Disease, Hyperthyroidism, Hypothyroidism, Parathyroid Disease, Pituitary Disease, Systemic Lupus Erythematosus, Syndrome of Inappropriate Antidiuretic Hormone (SIADH), Adrenal Disease or Graves' Disease HEMATOLOGIC: Negative Blood Disorders, Anemia, Leukemia, Hemophilia, Thalassemia, Sickle Cell Disease or Clotting Problems PSYCHO/SOCIAL: Positive Anxiety; Negative Psychiatric Problems, Schizophrenia, Recreational Drug Use, Bipolar Disorder, Depression, Behavior Problems, Self-Mutilation, Attention Deficit Disorder, Attention Deficit Hyperactivity Disorder, Depression, Post Traumatic Stress Disorder or Eating Disorder OTHER HISTORY: Positive Blood Transfusions; Negative Hospitalization, Autoimmune Disease, Down Syndrome, Autism, Developmental Delay, Shingles, Falls, Blood Transfusion Reaction, Anesthesia Reactions, Organ Transplant, Chemotherapy, Radiation Therapy, Hyperbaric Therapy, MRSA, VRSA, Vancomycin-Resistant Enterococci, Human Immunodeficiency Virus (HIV), Chicken Pox, Measles, Mumps, Rubella (Stateless Measles), Pertussis, Clostridium Difficile, Cancer, Breast Cancer, Cervical Cancer, Colorectal Cancer, Lung Cancer, Ovarian Cancer, Prostate Cancer or Testicular Cancer Family History FAMILY HISTORY: Positive Family Surgery; Negative Family Psychiatric Problems, Family Respiratory Disorders, Family Cardiac Disorders, Family Gastrointestinal Problems, Family Cancer or Family Anesthesia Reaction Surgical History SURGICAL: Positive Joint Replacement and Arthroscopy; Negative Cardiac Surgery, Open Heart Surgery, Coronary Artery Bypass Graft, Valve Replacement, Vascular Surgery, Coronary Stent, Cardiac Catheterization, Pacemaker, Angiogram, Auto Implanted Cardiovert Defib, Carotid Endarterectomy, Endocrine Surgery, Thyroidectomy, Ear Surgery, Tympanostomy Tube, Eye Surgery, Nose Surgery, Oral Surgery, Tonsillectomy, Adenoidectomy, Cochlear Implant, Corneal Transplant, Throat Surgery, Abdominal Surgery, Tracheostomy, Gastric Bypass Surgery, Gastrostomy, Bowel Surgery, Nephrectomy, Transurethral Resection, Amputation, Open Reduction Internal Fixation, Neurologic Surgery, Brain Shunt, Vasectomy or Organ Transplant Social History SMOKING STATUS: Never smoker SECOND HAND EXPOSURE: No SUBSTANCE USE: does not use OCCUPATION: Unemployed for past 2 years ED Exam General Limitations: Present no limitations General appearance: Present alert and other (looks uncomfortable) Head Head exam: Present atraumatic Eye Eye exam: Present normal appearance and EOMI; Absent scleral icterus ENT ENT exam: Present normal exam, normal oropharynx and mucous membranes moist Neck Neck exam: Present normal inspection, full ROM and trachea midline Chest Chest inspection: Present normal inspection and symmetric chest wall rise Respiratory Respiratory exam: Present normal lung sounds bilaterally; Absent respiratory distress, wheezes or accessory muscle use Cardiovascular Cardiovascular exam: Present regular rate, normal rhythm and normal heart sounds Abdominal Exam Abdominal exam: Present soft, guarding and normal bowel sounds; Absent distention or rebound Abdominal tenderness: Present epigastrium Extremities Exam Extremities exam: Present normal inspection and full ROM Back Exam Back exam: Present normal inspection and full ROM Neurological Exam Neurological exam: Present alert, oriented X3 and CN II-XII intact Psychiatric Psychiatric exam: Present normal affect and normal mood Skin Skin exam: Present warm, dry, intact and normal color Course Quality Measures none Orders Category Date Time 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 Care 07/04/25 06:48 Completed Continuous Pulse Oximetry NOW Care 07/04/25 06:48 Completed EKG (ED ONLY) *Do not use* NOW Care 07/04/25 04:43 Completed Insert IV NOW Care 07/04/25 06:48 Completed EKG (ED Only) Stat Exams 07/04/25 04:43 Draft XR chest 1V portable Stat Exams 07/04/25 04:44 Completed Alcohol, Blood Medical Stat Lab 07/04/25 05:40 Completed CBC Stat Lab 07/04/25 05:40 Completed Comprehensive Metabolic Panel Stat Lab 07/04/25 05:40 Completed Lipase Stat Lab 07/04/25 05:40 Completed Magnesium Stat Lab 07/04/25 05:40 Completed Partial Thromboplastin Time Stat Lab 07/04/25 05:40 Completed Prothrombin Time with INR Stat Lab 07/04/25 05:40 Completed Troponin I Stat Lab 07/04/25 05:40 Completed Urinalysis Stat Lab 07/04/25 08:36 Completed Urinalysis, C/S if Indicated Stat Lab 07/04/25 05:30 Completed Diazepam Inj [Valium Inj] Med 07/04/25 04:44 Discontinued 10 mg IM X1 ONE Famotidine Inj [Pepcid Inj] Med 07/04/25 07:01 Discontinued 20 mg IVP X1 ONE LORazepam [Ativan Inj] Med 07/04/25 07:01 Discontinued 1 mg IVP X1 ONE Ondansetron Inj [Zofran Inj] Med 07/04/25 07:01 Discontinued 4 mg IVP X1 ONE Sodium Chloride 0.9% 1000 ml [Ns] 1,000 ml Med 07/04/25 06:48 Discontinued IV 999 mls/hr Vital Signs Vital signs: Vital Signs Temperature 98.1 F 07/04/25 03:55 Pulse Rate 98 07/04/25 03:55 Respiratory Rate 17 07/04/25 03:55 Blood Pressure 139/86 H 07/04/25 03:55 Pulse Oximetry (%) 98 07/04/25 03:55 Oxygen Delivery Method Room Air 07/04/25 03:55 Abdominal Pain MDM Patient data External records reviewed:: [facility] previous records (Per chart review, patient was seen here on 04/18/24 for abdominal pain.) Clinical information provided by:: patient Social determinants that could affect healthcare access:: none Patient has the following chronic illnesses:: GERD, seizures How is presenting disease/condition affected by chronic disease/condition?: uneffected by Evaluation data The following diagnostics were reviewed and interpreted by me:: lab results and radiology exam(s) Lab and/or radiology exams considered but not ordered:: none Interpretation Summary: CBC is normal, CMP is normal, Lipase is slightly elevated, UDS is negative, according to my interpretation. ------ [place] [facility] Report Signed Patient: MONA ARAGON [facility]. Record#: [id number] Birthdate: 1980 Age/Sex: 44 / M Location: [facility] Attending Dr: Ordering Physician: Carline (RENE)Yoni NP Date of Service: 07/24/24 Procedure(s): CT abdomen pelvis wo con Accession Number(s): [id number] cc: Taqueria Stanton; Carline (RENE),Yoni LÓPEZ; Justin Costa MD~ Examination: CT abdomen and pelvis without contrast. Coronal 3-D reconstructions. Sagittal 2-D reconstructions. Date and time of exam:July 24, 2024 1803 hours Comparison June 05, 2024 INDICATIONS: Abdominal pain epigastric pain nausea vomiting diarrhea beginning 2 days ago CTDI: vol (mGy): 6.43 DLP: (mGycm): 374 Technique: Axial images of the abdomen have been obtained, 3 mm slice thickness Intravenous contrast material has not been administered. Low dose protocols were performed. One or more of the following dose reduction techniques were used; automated exposure control, adjustment of the mA and/or KV according to patient size, use of iterative reconstruction technique. Findings: Small pericardial effusion, 7 mm axial image 38 No focal liver or splenic lesions Contracted gallbladder No pancreatic or adrenal mass No renal or ureteral calculi, no hydronephrosis Aorta normal size 17 mm fat-containing umbilical hernia Normal appendix No bowel obstruction No diverticulitis Normal prostate Contracted urinary bladder The osseous structures are intact IMPRESSION: Negative for pancreatitis No renal or ureteral calculi, no hydronephrosis Normal appendix No bowel obstruction diverticulitis or free air Consider post fasting gallbladder sonography follow-up Dictated By: Justin Costa MD Signed By: <Electronically signed by Justin Costa MD in OV> 07/24/24 1842 Medications / Prescriptions Medications or Prescriptions considered but not ordered:: none Medication administrations:: Medication Administration History Discontinued Medications Diazepam (Diazepam Inj 5 Mg/Ml Vial 2 Ml) 10 mg IM X1 ONE Stop: 07/04/25 04:45 Last Admin: 07/04/25 05:10 Dose: 10 mg Documented By: AVERY Famotidine (Famotidine Inj 10 Mg/Ml Vial 2 Ml) 20 mg IVP X1 ONE Stop: 07/04/25 07:02 Last Admin: 07/04/25 07:30 Dose: 20 mg Documented By: DIONNA Sodium Chloride (Ns) 1,000 mls @ 999 mls/hr IV .Q1H1M ONE Stop: 07/04/25 07:48 Last Infusion: 07/04/25 09:38 Dose: Infused Documented By: Admin: 07/04/25 07:31 Dose: 999 mls/hr Documented By: DIONNA Lorazepam (Lorazepam 2 Mg/Ml Vial) 1 mg IVP X1 ONE Stop: 07/04/25 07:02 Last Admin: 07/04/25 07:30 Dose: 1 mg Documented By: DIONNA Ondansetron HCl (Ondansetron Inj 2 Mg/Ml Inj 2 Ml) 4 mg IVP X1 ONE; Protocol Stop: 07/04/25 07:02 Last Admin: 07/04/25 07:30 Dose: 4 mg Documented By: DIONNA see above Consultations Consultation(s) initiated? (list below): No Diagnosis Differential diagnosis abdominal pain: abdominal pain, acute appendicitis, calculus of kidney, constipation, diverticulitis, gastroenteritis and pancreatitis Most likely diagnosis given after review of the tests above:: Abdominal pain unclear etiology Admission Indicated Admission indicated?: not indicated Admission Request Was there a request for admission?: No Disposition Plan Disposition Plan: Discharge Discharge Attestation Discharge Attestation: The patient and all family members were given an opportunity to ask questions and understood the discharge instructions. Discharge instructions specifically effects, indications for sooner follow up or return to the emergency department, and the expected course of current diagnosis. Patient condition: Stable Discharge Plan Plan Patient Disposition: HOME (Self Care) Patient condition on transfer: Stable Prescriptions/Referrals Prescriptions/Med Rec: New lorazepam [Ativan] 0.5 mg tablet 0.5 mg PO TID PRN (Reason: alcohol withdrawal) Qty: 14 0RF No Action levetiracetam 500 mg tablet 500 mg PO BID Patient Comments: take 1 tablet by mouth three times a day famotidine 40 mg tablet 40 mg PO QDAY Qty: 30 0RF dicyclomine 20 mg tablet 20 mg PO QID PRN (Reason: abdominal pain) Qty: 30 0RF pantoprazole [Protonix] 40 mg tablet,delayed release (DR/EC) 40 mg PO QDAY Qty: 14 0RF famotidine [Pepcid] 40 mg tablet 40 mg PO QDAY Qty: 30 0RF hydrocodone-acetaminophen 10-325 mg Tablet 1 tab PO Q6H PRN (Reason: Pain) pantoprazole 40 mg Tablet,Delayed Release (Dr/Ec) 40 mg PO BID Qty: 60 0RF hydrocodone-acetaminophen 5-325 mg tablet 1 tab PO Q8H MDD 3 tabs PRN (Reason: pain) Qty: 6 0RF ondansetron 4 mg tablet,disintegrating 4 mg PO Q8H PRN (Reason: nausea and vomiting) Qty: 10 0RF clarithromycin 500 mg tablet 500 mg PO BID Qty: 28 0RF amoxicillin 875 mg tablet 875 mg PO BID Qty: 28 0RF ondansetron 4 mg tablet,disintegrating 4 mg PO Q8H PRN (Reason: nausea and vomiting) Qty: 14 0RF quetiapine 100 mg tablet 100 mg PO QDAY PRN (Reason: anxiety) Referrals: Marcus Mendoza MD [Primary Care Provider] - In 1 week Problem List Clinical Impression: Alcohol abuse Patient/Caregiver Discharge Instructions Discharge Activity: activity as tolerated Education Materials: Alcoholism: Getting Help, Alcohol Addiction Additional Instructions: Please abstain from drinking alcohol. Follow-up with your doctor in 2 to 3 days. Print Language: Persian Stand Alone Forms: [facility]e Award Info., Patient Portal Info Letter
[2025-07-04 07:13] VITALS: BP 156/99; PULSE 96; RESP 12; TEMP 36.8; O2SAT 98
[2025-07-04] MEDS: LORazepam 2 MG/ML VIAL 1 MG IVP (07:30)
[2025-07-04] MEDS: FAMOTIDINE INJ 10 MG/ML VIAL 2 ML 20 MG IVP (07:30)
[2025-07-04] MEDS: ONDANSETRON INJ 2 MG/ML INJ 2 ML 4 MG IVP (07:30)
[2025-07-04] MEDS: SODIUM CHLORIDE 0.9% 1000 ML 1,000 ML 999 ML IV (07:31)
[2025-07-04 07:39] LABS: INR 1.0 (0.9-1.3); Partial Thromboplastin Time 23.9 Seconds (22.0-36.0); Prothrombin Time 11.1 Seconds (9.0-12.2)
[2025-07-04 08:02] VITALS: BP 151/90; PULSE 100; RESP 20; O2SAT 100
[2025-07-04 08:39] LABS: Collection Type, Urine Clean Catch; Squamous Epithelial Cell,Urine 0 /hpf (0-5)
[2025-07-04 09:01] LABS: Bacteria,Urine Rare; Bilirubin,Urine Negative (Negative); Blood,Urine Negative (Negative); Clarity,Urine Clear (Clear/Hazy); Color,Urine Yellow (Lt Yel-Yel); Glucose, Urine Negative (Negative); Ketones,Urine Negative (Negative); Leukocyte Esterase,Urine Negative (Negative); Nitrite,Urine Negative (Negative); PH,Urine 6.0 (5.0-7.0); Protein,Urine 1+ (Neg - Trace); RBC,Urine 2 /hpf (0-3); Specific Gravity,Urine 1.031 (1.001-1.035); Urobilinogen,Urine Negative mg/dL (0.0-1.0); WBC,Urine 1 /hpf (0-5)
[2025-07-04 09:44] VITALS: BP 141/86; PULSE 96; RESP 16; TEMP 36.7; O2SAT 98
== END 2025-07-04 09:45 | disposition home or self-care (01) ==
PROVIDERS: Physician Assistant; Emergency Provider Family Medicine; PCP Family Medicine
DX: F10.10 Alcohol abuse, uncomplicated (principal); R10.13 Epigastric pain; Z56.0 Unemployment, unspecified; K21.9 Gastro-esophageal reflux disease without esophagitis
CPT/HCPCS: 36415; 71045; 80053; 80320; 81001; 83690; 83735; 84484; 85025; 85610; 85730; 93005; 96361; 96372; 96374; 96375; 99284; J2060; J2405; J3360; J3490; J7030; G0480